=== PATIENT | male | born 1990 | race Caucasian/White ===

== ENCOUNTER 2017-08-09 12:39 | Emergency (ER) | payer OTHER ==
[2017-08-09 13:37] VITALS: BP 129/68
== END 2017-08-09 13:37 | disposition home or self-care (01) ==
LOC: ED 12:39
DX: S29.012A Strain of muscle and tendon of back wall of thorax, initial encounter (principal); X58.XXXA Exposure to other specified factors, initial encounter; Y93.89 Activity, other specified; Y92.238 Other place in hospital as the place of occurrence of the external cause; Y99.8 Other external cause status
CPT/HCPCS: J1885

== ENCOUNTER 2020-08-27 14:25 | Emergency (ER) | payer OTHER, SELFPAY ==
[~2020-08-27] VITALS: Ht 185.4 cm; Wt 90.7 kg
[2020-08-27 14:27] VITALS: BP 158/80; Ht 185.4 cm; Wt 90.7 kg
== END 2020-08-27 14:47 | disposition home or self-care (01) ==
LOC: ED 14:25
DX: U07.1 COVID-19 (principal); B34.9 Viral infection, unspecified
CPT/HCPCS: U0003